=== PATIENT | female | born 1950 | race Caucasian/White ===

== ENCOUNTER 2016-10-20 09:15 | Emergency (ER) | payer BC ==
--- NOTE | 2016-10-20 09:52 | EDPHY ---
H & P Time Seen by Provider: 10/20/16 09:26 HPI/ROS: CHIEF COMPLAINT: Syncope, head injury HISTORY OF PRESENT ILLNESS: 66-year-old female presents to the emergency department after having a syncopal episode 2 days ago. The patient states that she got up to go to the bathroom at 1:00 a.m. at home and then had a syncopal episode in the bathroom. Her states that she was a bit disoriented after it happened but then she went back to bed. She has been applying ice and now heat to her face. She initially had a very large hematoma to the right side of her head which is improved now. She has mild headache. No visual changes. No chest pain or difficulty breathing. No abdominal pain. No neck or back pain. No injury to upper or lower extremities. REVIEW OF SYSTEMS: Constitutional: No fever, no chills. Eyes: No double or blurry vision. ENT: No sore throat. Respiratory: No cough, no shortness of breath. Cardiac: No chest pain. Gastrointestinal: No abdominal pain, vomiting or diarrhea. Genitourinary: No dysuria. Musculoskeletal: No neck or back pain. Skin: No rashes. Neurological: headache. Past Medical/Surgical History: Atrial fibrillation, ablation, hypertension, high cholesterol Social History: Smoking Status: Former smoker Physical Exam: General Appearance: Alert, no distress. Mentating normally and answering questions appropriately. Eyes: Pupils equal and round. Extraocular motions are all intact. Ecchymosis to the right upper and lower eyelid extending into the right zygomatic arch area. There is resolving ecchymosis to the right temporal area. Nontender to palpate over the superior inferior orbital rims on the right side. ENT: Mouth: Mucous membranes moist. No dental injury or malocclusion. Respiratory: No wheezing, rhonchi, or rales, lungs are clear to auscultation. Cardiovascular: Regular rate and rhythm. Gastrointestinal: Abdomen is soft and nontender, no masses, no rebound or guarding, bowel sounds normal. Neurological: Alert and oriented x 3, cranial nerves II through XII grossly intact Skin: Warm and dry, no rashes. Musculoskeletal: Nontender to palpate along the cervical, thoracic or lumbar spine. Neck is supple. Extremities: Full range of motion and no peripheral edema. Psychiatric: Patient is oriented X 3, there is no agitation. Constitutional: Initial Vital Signs Temperature (C) 36.6 C 10/20/16 09:18 Heart Rate 70 10/20/16 09:18 Respiratory Rate 16 10/20/16 09:18 Blood Pressure 184/90 H 10/20/16 09:18 O2 Sat (%) 100 10/20/16 09:18 O2 Delivery Mode Room Air Allergies/Adverse Reactions: No Allergies [NKDA] Allergy (Verified 07/09/11 12:03) Home Medications: Medication Instructions Recorded Atorvastatin Calcium 10/20/16 Eliquis 10/20/16 Lisinopril 10/20/16 Metoprolol Succinate 10/20/16 Medical Decision Making - Diagnostics Imaging Results: Imaging Impressions Head CT 10/20/16 09:49 Impression: 1. Normal CT brain without contrast. 2. No epidural or subdural hematoma. 3. Small right frontal scalp hematoma. Findings and recommendations discussed with Emergency Department physician, DWAYNE EVERETT at 10:27 hour, 10/20/2016. Final report concurs with initial preliminary interpretation. Imaging: Discussed imaging studies w/ architectural administrative assistant Radiologist, I viewed and interpreted images myself ED Course/Re-evaluation: 66-year-old female presents to the emergency department after having a syncopal episode 2 days ago falling hitting her head. She takes Eliquis for her history of atrial fibrillation. I recommended CT imaging of her brain and the patient verbalized understanding and agreed. Laboratory studies are pending. EKG is unremarkable. EKG reviewed with Dr. Quintin Aquino Laboratory studies are all within normal limits. EKG is unremarkable. Patient was given closed-head injury precautions. Patient instructed to return if she develops recurring syncope or if you feel worse in any way. Differential Diagnosis: Head injury including but not limited to concussion, skull fracture, intraparenchymal contusion, subarachnoid, subdural and epidural hematoma. Syncope including but not limited to vasovagal syncope, arrhythmia, dehydration , and blood loss. - Data Points Laboratory Results: Laboratory Results 10/20/16 10:30 10/20/16 10:30 10/20/16 10/20/16 10:30 10:30 WBC 3.83 10^3/uL 10^3/uL (3.80-9.50) RBC 4.45 10^6/uL 10^6/uL (4.18-5.33) Hgb 15.1 g/dL g/dL (12.6-16.3) Hct 43.0 % % (38.0-47.0) MCV 96.6 fL fL (81.5-99.8) MCH 33.9 pg pg (27.9-34.1) MCHC 35.1 g/dL g/dL (32.4-36.7) RDW 12.5 % % (11.5-15.2) Plt Count 184 10^3/uL 10^3/uL (150-400) MPV 10.1 fL fL (8.7-11.7) Neut % (Auto) 61.0 % % (39.3-74.2) Lymph % (Auto) 29.0 % % (15.0-45.0) [place] % (Auto) 8.9 % % (4.5-13.0) Eos % (Auto) 0.3 % L % (0.6-7.6) Baso % (Auto) 0.5 % % (0.3-1.7) Nucleat RBC Rel Count 0.0 % % (0.0-0.2) Absolute Neuts (auto) 2.34 10^3/uL 10^3/uL (1.70-6.50) Absolute Lymphs (auto) 1.11 10^3/uL 10^3/uL (1.00-3.00) Absolute Monos (auto) 0.34 10^3/uL 10^3/uL (0.30-0.80) Absolute Eos (auto) 0.01 10^3/uL L 10^3/uL (0.03-0.40) Absolute Basos (auto) 0.02 10^3/uL 10^3/uL (0.02-0.10) Absolute Nucleated RBC 0.00 10^3/uL 10^3/uL (0-0.01) Immature Gran % 0.3 % % (0.0-1.1) Immature Gran # 0.01 10^3/uL 10^3/uL (0.00-0.10) Sodium 142 mEq/L mEq/L (134-144) Potassium 4.2 mEq/L mEq/L (3.5-5.2) Chloride 109 mEq/L mEq/L (97-110) Carbon Dioxide 20 mEq/l L mEq/l (22-31) Anion Gap 13 mEq/L mEq/L (8-16) BUN 15 mg/dL mg/dL (7-23) Creatinine 0.7 mg/dL mg/dL (0.6-1.0) Estimated GFR > 60 Glucose 109 mg/dL H mg/dL (70-100) Calcium 10.3 mg/dL mg/dL (8.5-10.4) Departure - Departure Disposition: Home, Routine, Self-Care Clinical Impression: Head injury Qualifiers: Encounter type: initial encounter Qualified Code(s): S09.90XA - Unspecified injury of head, initial encounter Syncope Qualifiers: Syncope type: unspecified Qualified Code(s): R55 - Syncope and collapse Condition: Good Instructions: Syncope (ED), Head Injury (ED) Additional Instructions: Avoid any activity that might put you at risk for another head injury for at least 1 week. Return to the emergency department if you developed worsening headache, vomiting, altered mental status, or recurring episodes of syncope. Continue medications as prescribed. Referrals: Lolita Zamora MD [Primary Care Provider] - As per Instructions
--- NOTE | 2016-10-20 09:59 | CPEKG ---
Heart Rate: 61 RR Interval: 984 P-R Interval: 152 QRSD Interval: 74 QT Interval: 404 QTC Interval: 407 P [place]: 25 QRS [place]: 74 T Wave [place]: 42 EKG Severity - NORMAL ECG - EKG Impression: SINUS RHYTHM Electronically Signed By: Pancho Briceño 21-Oct-2016 15:50:49
[2016-10-20 10:42] LABS: % IMMATURE GRANULYOCYTES 0.3 % (0.0-1.1); ABSOLUTE IMMATURE GRANULOCYTES 0.01 10^3/uL (0.00-0.10); ADD DIFF? NO; ADD MORPH? NO; ADD SCAN? NO; ATYPICAL LYMPHOCYTE FLAG 10 (0-99); FRAGMENT RBC FLAG 0 (0-99); HEMOGLOBIN 15.1 g/dL (12.6-16.3); LEFT SHIFT FLG 10 (0-99); LIPEMIA HEMOLYSIS FLAG 90 (0-99); MEAN CELL HEMOGLOBIN 33.9 pg (27.9-34.1); MEAN CELL HEMOGLOBIN CONCENTR. 35.1 g/dL (32.4-36.7); MEAN CELL VOLUME 96.6 fL (81.5-99.8); MEAN PLATELET VOLUME 10.1 fL (8.7-11.7); PLATELET CLUMPS FLAG 0 (0-99); PLATELET COUNT 184 10^3/uL (150-400); RED BLOOD CELL COUNT 4.45 10^6/uL (4.18-5.33); RED CELL DISTRIBUTION WIDTH 12.5 % (11.5-15.2)
[2016-10-20 11:07] LABS: ANION GAP 13 mEq/L (8-16); CALCIUM 10.3 mg/dL (8.5-10.4); CARBON DIOXIDE 20 mEq/l (22-31); CHLORIDE 109 mEq/L (97-110); CREATININE 0.7 mg/dL (0.6-1.0); GLOMERULAR FILTRATION RATE > 60; GLUCOSE 109 mg/dL (70-100); POTASSIUM 4.2 mEq/L (3.5-5.2); SODIUM 142 mEq/L (134-144)
[2016-10-20 11:33] VITALS: BP 144/79; PULSE 62; RESP 18; TEMP 98.8; O2SAT 97
== END 2016-10-20 11:32 | disposition home or self-care (01) ==
DX: S09.90XA Unspecified injury of head, initial encounter (principal); R55 Syncope and collapse; I10 Essential (primary) hypertension; Z79.01 Long term (current) use of anticoagulants; Z87.891 Personal history of nicotine dependence; W18.09XA Striking against other object with subsequent fall, initial encounter; Y92.009 Unspecified place in unspecified non-institutional (private) residence as the place of occurrence of the external cause

== ENCOUNTER → 2017-01-13 | Outpatient (CLI) | payer BC | LOC: FIMAGING 07:46 | PROVIDERS: ATTEND Family Medicine | DX: Z12.31 Encounter for screening mammogram for malignant neoplasm of breast (principal) | CPT/HCPCS: G0202 ==

== ENCOUNTER 2017-08-05 13:23 | Day surgery (SDC) | payer BC, OTHER ==
[2017-08-05] MEDS ORDERED: LR 1,000 ML IV ONE (13:47)
[2017-08-05] MEDS ORDERED: LIDOCAINE 1% 2 ML INJ ID PRN (13:47)
--- NOTE | 2017-08-05 14:49 | PDANEPAE ---
ANE History of Present Illness colonic polyp here for followup colonoscopy ANE Past Medical History - Cardiovascular History Hx Hypertension: Yes Hx Arrhythmias: Yes Hx Coronary Artery / Peripheral Vascular Disease: No Hx CHF / Valvular Disease: No Cardiovascular History Comment: HX OF PAROXYSMAL A-FIB. ABLATION FOR A FIB - Pulmonary History Hx COPD: No Hx Asthma/Reactive Airway Disease: No Hx Recent Upper Respiratory Infection: No Hx Oxygen in Use at Home: No Hx Sleep Apnea: No Sleep Apnea Screening Result - Last Documented: Negative - Neurologic History Hx Cerebrovascular Accident: No Hx Seizures: No Hx Dementia: No - Endocrine History Hx Diabetes: No - Renal History Hx Renal Disorders: No - Liver History Hx Hepatic Disorders: No - Neurological & Psychiatric Hx Hx Neurological and Psychiatric Disorders: No - Cancer History Hx Cancer: No - Congenital Disorder History Hx Congenital Disorders: No - GI History Hx Gastrointestinal Disorders: No - Other Health History Other Health History: NEG - Chronic Pain History Chronic Pain: No - Surgical History Prior Surgeries: L YEHUDA. ABLATION. RIGHT YEHUDA 03/29/13. BREAST BIOPSY 03/2012. CARDIOVERSION X2: 04/2012 ANE Review of Systems Review of Systems: - Exercise capacity Exercise capacity: >=4 METS METS (RN): 5 METS ANE Patient History - Allergies Allergies/Adverse Reactions: No Allergies [NKDA] Allergy (Verified 07/09/11 12:03) - Home Medications Home medications: home medication list seen and reviewed Home Medications: Atorvastatin Calcium 10/20/16 [Last Taken 08/04/17] Eliquis 10/20/16 [Last Taken 08/02/17] Lisinopril 10/20/16 [Last Taken 08/04/17] Metoprolol Succinate 10/20/16 [Last Taken 08/04/17] - NPO status NPO Status: no food or drink >8 hours NPO Since - Liquids (Date): 08/05/17 NPO Since - Liquids (Time): 04:00 NPO Since - Solids (Date): 08/04/17 NPO Since - Solids (Time): 08:30 - Anes Hx Anes Hx: no prior problems - Smoking Hx Smoking Status: Former smoker - Alcohol Use Alcohol Use: Occasionally - Family Anes Hx Family Anes Hx: none Family Hx Anesthesia Complications: NEG ANE Labs/Vital Signs - Vital Signs Blood Pressure: 152/89 Heart Rate: 69 Respiratory Rate: 16 O2 Sat (%): 96 Height: 172.72 cm Weight: 65.771 kg ANE Physical Exam - Airway Neck exam: FROM Mallampati Score: Class 2 Mouth exam: normal dental/mouth exam - Pulmonary Pulmonary: no respiratory distress, clear to auscultation - Cardiovascular Cardiovascular: regular rate and rhythym, no murmur, rub, or gallop - ASA Status ASA Status: II
[2017-08-05] MEDS ORDERED: PROPOFOL/EMULSION 500 MG/50 ML BOTTLE IV ONE (14:53)
--- NOTE | 2017-08-05 14:57 | PDGENHP ---
History & Physical Chief Complaint: surv of complex polyp History of Present Illness: 66 year old male presents for surveillance of a complex t.c. polyp Pertinent Past, Social, Family History: PMHx: afib on eliquis Relevant Physical Exam: HEENT: Anicteric. Cv: RRR +s1s2. Lungs: CTAB No w/r/ r. Abd: soft, nt,+ bs Cardiorespiratory Assessment: ASA 2
[2017-08-05] MEDS ORDERED: NS 500 ML IV SCH (15:00)
[2017-08-05] MEDS ORDERED: NALOXONE HCL 0.4 MG/ML INJ IVP PRN (15:30)
--- NOTE | 2017-08-05 15:31 | POSTANESTH ---
Post Anesthetic Evaluation Cardiovascular Status: Normal, Stable, Similar to Pre-Op Cond Respiratory Status: Normal, Stable, Similar to Pre-op Cond. Level of Consciousness/Mental Status: Can Participate in Eval, Alert and Oriented Pain Control: Adequate, Prn Tx Ordered Nausea/Vomiting Control: Adequate, Prn Tx Ordered Complications Possibly Related to Anesthesia: None Noted
--- NOTE | 2017-08-05 15:46 | GIREPORT ---
[facility] Surgical Services - Endoscopy Department Patient Name: Neetu Ricardo Procedure Date: 08/05/2017 2:32 PM Patient Type: Outpatient Attending MD/ ER Physician: Jero Marcelo MD Procedure: Colonoscopy Indications: High risk colon cancer surveillance: Personal history of colonic polyps Patient Profile: 66 year old female presents for surveillance of a complex proximal transverse colon polyp. Providers: Jero Marcelo MD Medicines: Monitored Anesthesia Care Complications: No immediate complications. Estimated blood loss: Minimal. Description of Procedure: After obtaining informed consent, the scope was passed under direct vis ion. Throughout the procedure, the patient's blood pressure, pulse, and oxyg en saturations were monitored continuously. The Colonoscope with irrigatio n channel was introduced through the anus and advanced to the cecum, identified by appendiceal orifice and ileocecal valve. The colonoscopy was performed without difficulty. The patient tolerated the procedure well. The quality of the bowel preparation was good. The ileocecal valve, appendi ceal orifice, and rectum were photographed. Findings: The perianal and digital rectal examinations were normal. Pertinent negatives include no palpable rectal lesions. A tattoo was seen in the proximal transverse colon. The tattoo site jeronimo eared abnormal with nodular mucosa which may be remnant polyp. Biopsies were taken with a cold forceps for histology. Estimated Blood Loss: Estimated blood loss was minimal. Post Op Diagnosis: - A tattoo was seen in the proximal transverse colon. The tattoo site appeared abnormal with nodular mucosa. Remnant polyp? Biopsied. Recommendation: - Discharge patient to home (with escort). - Resume previous diet. - Continue present medications. - Await pathology results. - Repeat colonoscopy in 2 years for surveillance but will wait till pat h is back. - Thank you for allowing me to participate in the care of your patient. Attending Participation: I personally performed the entire procedure. Jero Marcelo MD Jero Marcelo MD 08/05/2017 3:45:26 PM This report has been signed electronicallyJero Marcelo MD Number of Addenda: 0 Note Initiated On: 08/05/2017 2:32 PM Total Procedure Duration Time 0 hours 19 minutes 21 seconds [email or web address]
[2017-08-05 16:05] VITALS: BP 122/79
== END 2017-08-05 16:55 | disposition home or self-care (01) ==
LOC: FSGY 13:23
PROVIDERS: ATTEND Internal Medicine Gastroenterology
PROC: 0DBL8ZX Excision of Transverse Colon, Via Natural or Artificial Opening Endoscopic, Diagnostic (ICD-10-PCS; principal; 2017-08-05 14:45)
DX: Z12.11 Encounter for screening for malignant neoplasm of colon (principal); D12.3 Benign neoplasm of transverse colon; I48.91 Unspecified atrial fibrillation; I10 Essential (primary) hypertension; Z79.01 Long term (current) use of anticoagulants; Z86.010 Personal history of colon polyps; Z87.891 Personal history of nicotine dependence; Z83.71 Family history of colonic polyps; Z96.643 Presence of artificial hip joint, bilateral
CPT/HCPCS: J2704

== ENCOUNTER → 2018-04-20 | Outpatient (CLI) | payer OTHER | LOC: FIMAGING 14:34 | PROVIDERS: ATTEND Family Medicine | DX: Z12.31 Encounter for screening mammogram for malignant neoplasm of breast (principal) ==

== ENCOUNTER 2018-05-13 09:59 | Emergency (ER) | payer OTHER ==
[2018-05-13 11:10] LABS: PLATELET COUNT 169 10^3/uL (150-400)
[2018-05-13] MEDS ORDERED: DIAZEPAM 5 MG TAB PO ONE (11:44)
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
[2018-05-13 11:59] VITALS: BP 124/88
--- NOTE | 2018-05-17 16:01 | CPEKG ---
Test Reason : OPEN Blood Pressure : / mmHG Vent. Rate : 092 BPM Atrial Rate : 146 BPM P-R Int : 181 ms QRS Dur : 078 ms QT Int : 339 ms P-R-T Axes : 000 074 011 degrees QTc Int : 420 ms Atrial fibrillation Confirmed by Kevan Atkinson ([id number]) on 05/17/2018 4:00:47 PM Referred By: Kevan Atkinson Confirmed By:Kevan Atkinson
== END 2018-05-13 12:05 | disposition home or self-care (01) ==
DX: M54.5 Low back pain (principal)
CPT/HCPCS: 84484-ER

== ENCOUNTER 2018-06-13 11:51 | Day surgery (SDC) | payer OTHER ==
[2018-06-13] MEDS ORDERED: NS 500 ML IV ONE (11:57)
[2018-06-13] MEDS ORDERED: MIDAZOLAM 2 MG/2 ML VIAL IVP ONE (11:57)
[2018-06-13] MEDS ORDERED: ATROPINE SULFATE 1 MG/10 ML SYR IVP ONE (11:57)
[2018-06-13] MEDS ORDERED: fentaNYL 100 MCG/2 ML INJ IVP ONE (11:57)
[2018-06-13] MEDS ORDERED: PROPOFOL 200 MG/20 ML VIAL ONE ×2 (12:56→13:01)
[2018-06-13] MEDS ORDERED: LIDOCAINE 1% 5 ML SDV ONE (12:57)
--- NOTE | 2018-06-13 13:04 | PDHPUP ---
History & Physical Update H&P update statement: This history and physical update is based on an assessment of the patient which was completed after admission or registration (within 24 hours), but prior to the surgery/procedure. H&P update: H&P reviewed & patient examined, no change in patient's condition since H&P completed
--- NOTE | 2018-06-13 13:13 | PDANEPAE ---
ANE History of Present Illness A-fib s/p ablation in 2013. Recent syncope after viral infection. Found to be in A-fib. + history of CAD, MVR, HTN, and A-fib ANE Past Medical History - Cardiovascular History Hx Hypertension: Yes Hx Arrhythmias: Yes Hx Coronary Artery / Peripheral Vascular Disease: No Hx CHF / Valvular Disease: No Cardiovascular History Comment: HX OF PAROXYSMAL A-FIB. ABLATION FOR A FIB - Pulmonary History Hx COPD: No Hx Asthma/Reactive Airway Disease: No Hx Recent Upper Respiratory Infection: No Hx Oxygen in Use at Home: No Hx Sleep Apnea: No - Neurologic History Hx Cerebrovascular Accident: No Hx Seizures: No Hx Dementia: No - Endocrine History Hx Diabetes: No - Renal History Hx Renal Disorders: No - Liver History Hx Hepatic Disorders: No - Neurological & Psychiatric Hx Hx Neurological and Psychiatric Disorders: No - Cancer History Hx Cancer: No - Congenital Disorder History Hx Congenital Disorders: No - GI History Hx Gastrointestinal Disorders: No - Other Health History Other Health History: NEG - Chronic Pain History Chronic Pain: No - Surgical History Prior Surgeries: L YEHUDA. ABLATION. RIGHT YEHUDA 03/29/13. BREAST BIOPSY 03/2012. CARDIOVERSION X2: 04/2012 ANE Review of Systems Review of systems is: negative Review of Systems: ANE Patient History - Allergies Allergies/Adverse Reactions: No Allergies [NKDA] Allergy (Verified 07/09/11 12:03) - Home Medications Home Medications: Atorvastatin Calcium 10/20/16 [Last Taken 08/04/17] Eliquis 10/20/16 [Last Taken 08/02/17] Lisinopril 10/20/16 [Last Taken 08/04/17] Metoprolol Succinate 10/20/16 [Last Taken 08/04/17] - Smoking Hx Smoking Status: Former smoker - Family Anes Hx Family Hx Anesthesia Complications: NEG ANE Physical Exam - Airway Mallampati Score: Class 2 Mouth exam: normal dental/mouth exam - Pulmonary Pulmonary: no respiratory distress - Cardiovascular Cardiovascular: irregularly irregular - ASA Status ASA Status: III ANE Anesthesia Plan Anesthesia Plan: MAC
--- NOTE | 2018-06-13 13:28 | PDTEE1 ---
MEG Cardioversion Procedure Procedure: electrical cardioversion, transesophageal echo Indications: atrial fibrillation Consent: signed and in chart Anticoagulation: eliquis Procedural Details: Sedation provided by the anesthesia service. Pads were placed in anterior- posterior position. MEG probe was advanced and standard images obtained. There is no evidence of left atrial or left atrial appendage thrombus. Synchronized cardioversion attempt #1: 200J Results: normal sinus rhythm Conclusions: successful MEG cardioversion Patient Problems: Problems Problem Status Onset Atrial fibrillation or flutter Acute Osteoarthritis of hip Acute
[2018-06-13] MEDS ORDERED: NALOXONE HCL 0.4 MG/ML INJ IVP PRN (13:30)
--- NOTE | 2018-06-13 13:31 | POSTANESTH ---
Post Anesthetic Evaluation Cardiovascular Status: Normal, Stable Respiratory Status: Normal, Stable Level of Consciousness/Mental Status: Mildly Sleepy, Arousable Pain Control: Adequate, Prn Tx Ordered Complications Possibly Related to Anesthesia: None Noted
[2018-06-13 13:35] LABS: INR 1.3 (0.83-1.16); PROTIME(PATIENT) 16.4 SEC (12.0-15.0)
--- NOTE | 2018-06-13 17:21 | ECHO ---
[email or web address] [place] [id number] Main: [phone] Fax: Transesophageal Echocardiography Name: MIKAYLA RODRIGUEZ MR#: [id number] Study Date: 06/13/2018 Study Time: 01:04 PM Date of : 1950 Age: 67 year(s) Height: 172.7 cm (68 in.) Weight: 68.04 kg (150 lb.) BSA: 1.81 m2 Gender: Female Examination: MEG Indication: Atrial Fibrillation Image Quality: Contrast: Requested by: Reba Peters Heart Rate: Rhythm: BP: 140 mmHg/94 mmHg Procedure Staff Cardiac Nurse: Alexandrea Bonner [facility] Reading Physician: Reba Peters MD Requesting Provider: MEG Exam Details Conclusions: Normal global systolic LV function. No thrombus in left appendage. 2 separate jets of moderate MR.. Mild tricuspid regurgitation is present. Measurements: Chambers Valvular Assessment AV/MV Valvular Assessment TV/PV Normal Normal Normal Name Value Range Name Value Range Name Value Range Additional Measurements: Findings: Left Ventricle: Normal global systolic LV function. Left Atrial Appendage: No thrombus in left appendage. Mitral Valve: 2 separate jets of moderate MR.. Aortic Valve: The aortic valve is tri-leaflet. There is no significant aortic valve regurgitation. Tricuspid Valve: Mild tricuspid regurgitation is present. Patient: MIKAYLA RODRIGUEZ Study Date: 06/13/2018 Page 1 of 2 01:04 PM Pulmonic Valve: The pulmonic valve is normal in appearance. Trivial pulmonic valve regurgitation. l1n (No Signature Object) Patient: MIKAYLA RODRIGUEZ Study Date: 06/13/2018 Page 2 of 2 01:04 PM [id number]
== END 2018-06-13 15:02 | disposition home or self-care (01) ==
LOC: FCATH 11:51
PROVIDERS: ATTEND Internal Medicine Cardiovascular Disease
DX: I48.91 Unspecified atrial fibrillation (principal); I34.0 Nonrheumatic mitral (valve) insufficiency; I25.10 Atherosclerotic heart disease of native coronary artery without angina pectoris; I10 Essential (primary) hypertension; E03.9 Hypothyroidism, unspecified; G47.00 Insomnia, unspecified; Z87.891 Personal history of nicotine dependence; Z79.01 Long term (current) use of anticoagulants; Z96.643 Presence of artificial hip joint, bilateral
CPT/HCPCS: J0461; J2250; J2704